=== PATIENT | male | born 1980 | race Caucasian/White ===

== ENCOUNTER 2019-10-27 13:18 | Emergency (ER) | payer OTHER ==
[~2019-10-27] VITALS: Ht 170.2 cm; Wt 84.1 kg
[~2019-10-27 13:18] MED LIST: IBUP-2071 PO; MIRALAX PO; OMEP20 PO
[2019-10-27] MEDS ORDERED: KETOROLAC TROMETHAMINE 30 MG/ML VIAL IM ONE (14:45)
[2019-10-27] MEDS ORDERED: LIDOCAINE 5% TRANSDERMAL PATCH TD ONE (14:45)
[2019-10-27] MEDS ORDERED: METHOCARBAMOL 500 MG TABLET PO ONE (14:45)
[2019-10-27 16:31] VITALS: BP 122/81
== END 2019-10-27 16:34 | disposition home or self-care (01) ==
LOC: EMS 13:23
DX: S39.012A Strain of muscle, fascia and tendon of lower back, initial encounter (principal); X50.0XXA Overexertion from strenuous movement or load, initial encounter; Y93.89 Activity, other specified; Y92.89 Other specified places as the place of occurrence of the external cause; Y99.8 Other external cause status
CPT/HCPCS: 96372; 99283; J1885